=== PATIENT | male | born 1935 | race Caucasian/White ===

== ENCOUNTER 2017-09-03 20:11 | Inpatient (IN) | payer OTHER ==
--- NOTE | 2017-09-03 20:59 | RAD REPORT ---
EXAM DESCRIPTION: CT - Head Brain Wo Cont - 09/03/2017 8:52 pm CLINICAL HISTORY: Syncope, altered consciousness. Head injury. COMPARISON: 05/01/2017 TECHNIQUE: All CT scans are performed using dose optimization technique as appropriate and may inclu de automated exposure control or mA/KV adjustment according to patient size. FINDINGS: No intracranial hemorrhage, hydrocephalus or extra-axial fluid collection.Moderate general ized brain atrophy is present with moderate periventricular and deep white matter chronic microvascul ar ischemic changes.No areas of brain edema or evidence of midline shift. The paranasal sinuses and mastoids are essentially clear. The calvarium is intact. IMPRESSION: No acute intracranial abnormality.
--- NOTE | 2017-09-03 21:00 | RAD REPORT ---
EXAM DESCRIPTION: RAD - Chest Single View - 09/03/2017 8:47 pm CLINICAL HISTORY: Hypotension, chest pain COMPARISON: 05/01/2017 FINDINGS: Portable technique limits examination quality. Elevation of the right hemidiaphragm is noted. No clear etiology for this is seen. The lungs are fan sly clear. The heart is normal in size. No displaced fractures.Tortuous thoracic aorta noted. IMPRESSION: Elevated right hemidiaphragm.
[2017-09-03 21:30] LABS: Absolute Lymphocytes (CBC) 0.8 K/uL (0.7-4.9); Absolute Monocytes 0.9 K/uL (0.1-1.3); Absolute Neutrophil 8.4 K/uL (1.8-8.0); Basophils % 0.3 % (0-1.3); Eosinophils % 0.7 % (0-4.4); Hematocrit 45.3 % (39.6-49.0); Lymphocytes % 7.9 % (15.3-44.8); MCH 30.9 pg (27.0-35.0); MCV 90.1 fL (80-100); MPV 9.5 fL (7.6-11.3); Monocytes % 8.6 % (3.3-12.3); RBC Red Blood Cell Count 5.03 M/uL (4.33-5.43)
[2017-09-03 21:44] LABS: Protime INR 0.96
[2017-09-03 21:47] LABS: Bicarbonate 30 mEq/L (21-31); Glucose Level 98 mg/dL (65-120); Lipase 53 U/L (22-51); Potassium 3.9 mEq/L (3.6-5.0); Sodium Level 135 mEq/L (135-145)
[2017-09-03 21:53] LABS: ALT/SGPT 16 IU/L (10-60); AST/SGOT 22 IU/L (10-42); Albumin 3.7 g/dL (3.2-5.5); Alkaline Phosphatase 90 IU/L (42-121); BUN Blood Urea Nitrogen 20 mg/dL (6-20); Bilirubin Direct 0.1 mg/dL (0-0.2); Bilirubin Total 0.4 mg/dL (0.3-1.2); Creatine Phosphokinase 46 IU/L (22-269)
[2017-09-03 21:55] LABS: CKMB Creatine Kinase MB 3.9 ng/ml (0.3-4.0)
[2017-09-03 21:55] LABS: Urine Blood TRACE (NEG); Urine Glucose NEGATIVE (NEG); Urine Protein 1+ (NEG)
[2017-09-03 22:31] LABS: Arterial Blood Carboxyhemoglob 0.9 % (0-1.5); Blood Gas Oxyhemoglobin 97.1 % (94-97)
--- NOTE | 2017-09-03 23:02 | ER ---
Nurse's Notes [facility] Name: Tanner Burton Age: 82 yrs Sex: Male : 1935 Arrival Date: 09/03/2017 Time: 20:14 Bed 7 Private MD: Diagnosis: Syncope. Acute dyspnea. Transient hypotension Presentation: 09/03 20:15 Presenting complaint: EMS states: THE STAFF AT [facility] FOUND HIM DOWN AND bp UNRESPONSIVE WITH VOMIT ALL DOWN THE FRONT OF HIM. HIS SAT WAS 70 ON SCENE AND HIS BP WAS LOW. Transition of care: patient was received from another setting of care (long-term care facility), [facility]. Onset of symptoms is unknown. Risk Assessment: Do you want to hurt yourself or someone else? Patient reports no desire to harm self or others. Initial Sepsis Screen: Does the patient meet any 2 criteria? No. Patient's initial sepsis screen is negative. Does the patient have a suspected source of infection? No. Patient's initial sepsis screen is negative. Care prior to arrival: IV initiated. 20 GA, in the left antecubital area, Glucose check: 121 Oxygen administered. via a non-rebreather mask. 20:15 Method Of Arrival: EMS: [facility] bp 20:15 Acuity: KATRIN 2 bp Triage Assessment: 20:22 General: Appears in no apparent distress. comfortable, obese, Behavior is quiet, AT bp BASELINE, PER EMS. Pain: Unable to use pain scale. Does not appear to understand pain scale. EENT: No deficits noted. Neuro: Level of Consciousness is lethargic, Oriented to AT BASELINE. Cardiovascular: Capillary refill < 3 seconds Rhythm is atrial fibrillation. Respiratory: Reports PT DISORIENTED AT BASELINE Onset: The symptoms/episode began/occurred at an unknown time. the patient reports symptoms have resolved. GI: Reports vomiting. : No signs and/or symptoms were reported regarding the genitourinary system. Derm: No deficits noted. Musculoskeletal: Circulation, motion, and sensation intact. Historical: - Allergies: 20:22 Amitriptyline; bp - Home Meds: 20:22 Dilantin 100 MG Oral 100 mg three times a day [Active]; Depakote ER 250 mg Oral Tb24 2 bp tabs three times a day [Active]; Neurontin 300 mg Oral cap 2 caps twice a day [Active]; hydrochlorothiazide 12.5 mg Oral cap 1 cap once daily [Active]; levothyroxine 150 mcg tab 1 tab once daily [Active]; losartan 25 mg Oral tab 1 tab once daily [Active]; paroxetine HCl 30 mg oral tab 1 tab once daily [Active]; Flomax 0.4 mg Oral cp24 1 cap once daily [Active]; - PMHx: 20:22 Anxiety; Depression; carpal tunnel; BPH; epilepsy; Hypertension; Hypothyroidism; bp Dementia; Atrial Fib; - Immunization history:: Adult Immunizations up to date. - Social history:: Smoking status: Patient/guardian denies using tobacco. - Ebola Screening: : Patient negative for fever greater than or equal to 101.5 degrees Fahrenheit, and additional compatible Ebola Virus Disease symptoms Patient denies exposure to infectious person Patient denies travel to an Ebola-affected area in the 21 days before illness onset No symptoms or risks identified at this time. Screenin:26 Abuse screen: Denies threats or abuse. Denies injuries from another. Nutritional bp screening: No deficits noted. Tuberculosis screening: No symptoms or risk factors identified. Fall Risk No fall in past 12 months (0 pts). Secondary diagnosis (15 points) dementia, impaired mobility, IV access (20 points). Ambulatory Aid- None/Bed Rest/Nurse Assist (0 pts). Gait- Normal/Bed Rest/Wheelchair (0 pts) Mental Status- Overestimates/Forgets Limitations (15 pts.). Total Anthony Fall Scale indicates High Risk Score (45 or more points). Fall prevention measures have been instituted. Side Rails Up X 2 Placed Close to Nursing Station. Assessment: 20:25 Reassessment: SEE TRIAGE NOTE. bp 20:30 General: Appears in no apparent distress. comfortable, Behavior is calm, cooperative. bp Pain: Denies pain. Neuro: Level of Consciousness is awake, alert, confused, Oriented to person, AT BASELINE. Cardiovascular: Rhythm is atrial fibrillation. Respiratory: Airway is patent Respiratory effort is even, unlabored, Respiratory pattern is regular, symmetrical, Breath sounds are clear bilaterally. GI: No signs and/or symptoms were reported involving the gastrointestinal system. : Parent/caregiver report the patient having incontinence AT BASELINE. EENT: No deficits noted. Derm: Skin is intact, Skin temperature is cool. Musculoskeletal: Circulation, motion, and sensation intact. W/C BOUND AT BASELINE. 21:42 Reassessment: MARLEY BURTON (DAUGHTER IN LAW) [phone]. bp 21:55 Reassessment: LAB CRITICAL DDIMER 1111 RELAYED TO . bp 09/04 00:00 Reassessment: ALL CURRENT ORDERS COMPLETED. ADMIT IN PROCESS. bp 01:29 Reassessment: REPORT TO 407, PT RANJEET. bp Vital Signs: 09/03 20:22 BP 148 / 80; Pulse 73; Resp 14; Temp 97.9; Pulse Ox 100% on Non-rebreather mask; Weight bp 83.91 kg (R); 21:00 BP 122 / 74; Pulse 79; Resp 16; Pulse Ox 100% ; bp 22:00 BP 133 / 75; Pulse 75; Resp 16; Pulse Ox 100% ; bp 23:00 BP 126 / 76; Pulse 89; Resp 14; Pulse Ox 95% ; bp 09/04 00:00 BP 134 / 83; Pulse 90; Resp 18; Pulse Ox 95% ; bp 01:00 BP 128 / 78; Pulse 85; Resp 16; Pulse Ox 98% on R/A; bp ED Course: 09/03 20:14 Patient arrived in ED. bp 20:14 Sherwin Patel MD is Attending Physician. pkl 20:16 Triage completed. bp 20:22 Arm band placed on. bp 20:26 Patient has correct armband on for positive identification. Placed in gown. Bed in low bp position. Call light in reach. Side rails up X2. 20:26 Maintain EMS IV. Dressing intact. Good blood return noted. Site clean \T\ dry. Gauge \T\ bp site: 20 GAUGE LEFT AC. 20:40 Castro Jonas, ABDULLAHI is Primary Nurse. bp 20:[address] via stretcher. eh 20:47 X-ray completed. Portable x-ray completed in exam room. Patient tolerated procedure kc2 well. 20:47 XRAY Chest (1 view) In Process Unspecified. EDMS 20:51 CT completed. Patient tolerated procedure well. Patient moved back from CT. nj 20:52 CT Head Brain wo Cont In Process Unspecified. EDMS 21:41 Pang cath inserted, using sterile technique, 18 Fr., by me, balloon inflated, to bp gravity drainage, urine specimen collected. 23:00 Sarah Kaplan MD is Hospitalizing Provider. pkl 23:41 No provider procedures requiring assistance completed. Patient admitted, IV remains in bp place. Administered Medications: No medications were administered Outcome: 23:01 Decision to Hospitalize by Provider. pkl 09/04 01:34 Admitted to Med/surg accompanied by tech, via stretcher, room 407, with chart, Report bp called to LESLI FERNANDO 01:35 Condition: stable bp 01:35 Instructed on the need for admit. 01:35 Patient left the ED. bp Signatures: Dispatcher [employer] EDMS Sherwin Patel MD MD pkl Kojo Mckeon Kelsie 2 Uriel Keane Brian, RN RN bp
--- NOTE | 2017-09-03 23:02 | EDPHYS ---
Physician Documentation [facility] Name: Tanner Guzman Age: 82 yrs Sex: Male : 1935 Arrival Date: 09/03/2017 Time: 20:14 Bed 7 Private MD: ED Physician Sherwin Patel HPI: 09/03 20:36 This 82 yrs old Male presents to ER via EMS with complaints of Shortness Of pkl Breath. 20:36 The patient has shortness of breath at rest. Onset: The symptoms/episode began/occurred pkl just prior to arrival. Associated signs and symptoms: Pertinent positives: found unresponsive. Historical: - Allergies: 20:22 Amitriptyline; bp - Home Meds: 20:22 Dilantin 100 MG Oral 100 mg three times a day [Active]; Depakote ER 250 mg Oral Tb24 2 bp tabs three times a day [Active]; Neurontin 300 mg Oral cap 2 caps twice a day [Active]; hydrochlorothiazide 12.5 mg Oral cap 1 cap once daily [Active]; levothyroxine 150 mcg tab 1 tab once daily [Active]; losartan 25 mg Oral tab 1 tab once daily [Active]; paroxetine HCl 30 mg oral tab 1 tab once daily [Active]; Flomax 0.4 mg Oral cp24 1 cap once daily [Active]; - PMHx: 20:22 Anxiety; Depression; carpal tunnel; BPH; epilepsy; Hypertension; Hypothyroidism; bp Dementia; Atrial Fib; - Immunization history:: Adult Immunizations up to date. - Social history:: Smoking status: Patient/guardian denies using tobacco. - Ebola Screening: : Patient negative for fever greater than or equal to 101.5 degrees Fahrenheit, and additional compatible Ebola Virus Disease symptoms Patient denies exposure to infectious person Patient denies travel to an Ebola-affected area in the 21 days before illness onset No symptoms or risks identified at this time. ROS: 20:36 Eyes: Negative for injury, pain, redness, and discharge, ENT: Negative for injury, pkl pain, and discharge, Neck: Negative for injury, pain, and swelling, Cardiovascular: Negative for chest pain, palpitations, and edema. 20:36 Respiratory: Positive for shortness of breath. 20:36 Abdomen/GI: Positive for vomiting. 20:36 Back: Negative for acute changes. 20:36 : Negative for urinary symptoms. 20:36 MS/extremity: Positive for swelling, of the both legs. 20:36 Skin: Negative for rash. 20:36 Neuro: Positive for altered mental status, loss of consciousness, syncope. Exam: 20:36 Head/Face: Normocephalic, atraumatic. Eyes: Pupils equal round and reactive to light, pkl extra-ocular motions intact. Lids and lashes normal. Conjunctiva and sclera are non-icteric and not injected. Cornea within normal limits. Periorbital areas with no swelling, redness, or edema. ENT: Nares patent. No nasal discharge, no septal abnormalities noted. Tympanic membranes are normal and external auditory canals are clear. Oropharynx with no redness, swelling, or masses, exudates, or evidence of obstruction, uvula midline. Mucous membranes moist. Neck: Trachea midline, no thyromegaly or masses palpated, and no cervical lymphadenopathy. Supple, full range of motion without nuchal rigidity, or vertebral point tenderness. No Meningismus. Chest/axilla: Normal chest wall appearance and motion. Nontender with no deformity. No lesions are appreciated. Cardiovascular: Regular rate and rhythm with a normal S1 and S2. No gallops, murmurs, or rubs. Normal PMI, no JVD. No pulse deficits. 20:36 Respiratory: the patient does not display signs of respiratory distress, Respirations: labored breathing, Breath sounds: are clear throughout. 20:36 Abdomen/GI: Bowel sounds: normal, Palpation: abdomen is soft and non-tender, in all quadrants. 20:36 Back: Exam negative for acute changes. 20:36 : Exam negative for acute changes. 20:36 Musculoskeletal/extremity: Extremities: grossly normal except: noted in the both legs: swelling. 20:36 Skin: Exam negative for rash. 20:36 Neuro: Orientation: appropriate for stated age, Mentation: appropriate for stated age, Cranial nerves: grossly normal, Motor: moves all fours. Vital Signs: 20:22 BP 148 / 80; Pulse 73; Resp 14; Temp 97.9; Pulse Ox 100% on Non-rebreather mask; Weight bp 83.91 kg (R); 21:00 BP 122 / 74; Pulse 79; Resp 16; Pulse Ox 100% ; bp 22:00 BP 133 / 75; Pulse 75; Resp 16; Pulse Ox 100% ; bp 23:00 BP 126 / 76; Pulse 89; Resp 14; Pulse Ox 95% ; bp 06 00:00 BP 134 / 83; Pulse 90; Resp 18; Pulse Ox 95% ; bp 01:00 BP 128 / 78; Pulse 85; Resp 16; Pulse Ox 98% on R/A; bp MDM: 09/03 20:14 Patient medically screened. pkl 22:59 Data reviewed: vital signs, nurses notes, lab test result(s), EKG, radiologic studies, pkl CT scan, plain films. 09/03 20:33 Order name: Basic Metabolic Panel; Complete Time: 22:52 pkl 09/03 20:33 Order name: BNP; Complete Time: 22:52 pkl 09/03 20:33 Order name: CBC with Diff; Complete Time: 22:52 pkl 09/03 20:33 Order name: Ckmb; Complete Time: 22:52 pkl 09/03 20:33 Order name: CPK; Complete Time: 22:52 pkl 09/03 20:33 Order name: LFT's; Complete Time: 22:52 pkl 09/03 20:33 Order name: Magnesium; Complete Time: 22:52 pkl 09/03 20:33 Order name: PT-INR; Complete Time: 22:52 pkl 09/03 20:33 Order name: Ptt, Activated; Complete Time: 22:52 pkl 09/03 20:33 Order name: Troponin (emerg Dept Use Only); Complete Time: 22:52 pkl 09/03 20:35 Order name: ABG; Complete Time: 22:58 pkl 09/03 20:35 Order name: D-Dimer; Complete Time: 22:52 pkl 09/03 20:35 Order name: Blood Culture Adult (2) pkl 09/03 20:33 Order name: XRAY Chest (1 view); Complete Time: 21:26 pkl 09/03 20:33 Order name: EKG; Complete Time: 20:34 pkl 09/03 20:33 Order name: Cardiac monitoring; Complete Time: 21:40 pkl 09/03 20:33 Order name: EKG - Nurse/Tech; Complete Time: 21:40 pkl 09/03 20:33 Order name: IV Saline Lock; Complete Time: 21:41 pkl 09/03 20:33 Order name: Labs collected and sent; Complete Time: 21:41 pkl 12 20:33 Order name: O2 Per Protocol; Complete Time: 21:41 pkl 09/03 20:33 Order name: O2 Sat Monitoring; Complete Time: 21:41 pkl 09/03 20:33 Order name: Urine Dipstick-Ancillary (obtain specimen); Complete Time: 21:41 pkl 09/03 20:35 Order name: Lactate; Complete Time: 22:52 pkl 09/03 20:35 Order name: Pang; Complete Time: 21:40 pkl 09/03 20:41 Order name: CT Head Brain wo Cont; Complete Time: 21:26 pkl 09/03 20:46 Order name: Lipase; Complete Time: 22:52 EDME 09/03 21:53 Order name: Urine Dipstick--Ancillary (enter results); Complete Time: 22:52 eb 09/03 22:59 Order name: CT Chest For PE Angio pkl Administered Medications: No medications were administered Disposition: 09/03/17 23:01 Hospitalization ordered by Sarah Kaplan for Observation. Preliminary diagnosis is Syncope. Acute dyspnea. Transient hypotension. - Bed requested for Telemetry/MedSurg (observation). - Status is Observation. bp - Condition is Stable. - Problem is new. - Symptoms have improved. UTI on Admission? No Signatures: Dispatcher [facility] Chayito Sotomayor RN RN mw Lam, Pin, MD MD pkl Peltier, Brian, RN RN bp Corrections: (The following items were deleted from the chart) 20:45 20:35 LIPASE+C.LAB.BRZ ordered. [facility] EDME 23:05 23:01 Hospitalization Ordered by Sarah Kaplan MD for Observation. Preliminary cathleen diagnosis is Syncope. Acute dyspnea. Transient hypotension. Bed requested for Telemetry/MedSurg (observation). Status is Observation. Condition is Stable. Problem is new. Symptoms have improved. UTI on Admission? No. pkl 09/04 01:35 09/03 23:05 09/03/2017 23:01 Hospitalization Ordered by Sarah Kaplan MD for bp Observation. Preliminary diagnosis is Syncope. Acute dyspnea. Transient hypotension. Bed requested for Telemetry/MedSurg (observation). Status is Observation. Condition is Stable. Problem is new. Symptoms have improved. UTI on Admission? No. mw
[2017-09-04] MEDS ORDERED: ONDANSETRON 4 MG/2 ML VIAL IV PRN (02:26)
[2017-09-04] MEDS ORDERED: ALBUTEROL 2.5 MG/3 ML NEB SOL NEB PRN (02:26)
[2017-09-04] MEDS ORDERED: ACETAMINOPHEN 500 MG TAB PO PRN (02:26)
[2017-09-04] MEDS ORDERED: IPRATROPIUM BROM 0.5MG/2.5ML NEB PRN (02:26)
[2017-09-04] MEDS: NA CHLORIDE 0.9% 1,000 ML IV SCH ×3 (02:46→23:03)
[2017-09-04 04:49] LABS: Absolute Lymphocytes (CBC) 0.7 K/uL (0.7-4.9); Absolute Monocytes 0.6 K/uL (0.1-1.3); Absolute Neutrophil 6.5 K/uL (1.8-8.0); Basophils % 0.3 % (0-1.3); Eosinophils % 0.4 % (0-4.4); Hematocrit 42.3 % (39.6-49.0); MCH 31.2 pg (27.0-35.0); MCV 90.2 fL (80-100); MPV 9.6 fL (7.6-11.3); Monocytes % 7.1 % (3.3-12.3); RBC Red Blood Cell Count 4.69 M/uL (4.33-5.43)
[2017-09-04 05:16] LABS: ALT/SGPT 14 IU/L (10-60); AST/SGOT 18 IU/L (10-42); Albumin 3.2 g/dL (3.2-5.5); Alkaline Phosphatase 83 IU/L (42-121); BUN Blood Urea Nitrogen 21 mg/dL (6-20); Bicarbonate 28 mEq/L (21-31); Bilirubin Total 0.5 mg/dL (0.3-1.2); Glucose Level 101 mg/dL (65-120); Potassium 3.7 mEq/L (3.6-5.0); Protein, Total 6.4 g/dL (6.0-8.3); Sodium Level 136 mEq/L (135-145)
--- NOTE | 2017-09-04 05:46 | P.HP ---
Certification for Inpatient Patient admitted to: Inpatient With expected LOS: >2 Midnights Practitioner: I am a practitioner with admitting privileges, knowledge of patient current condition, hospital course, and medical plan of care. Services: Services provided to patient in accordance with Admission requirements found in Title 42 Section 412.3 of the Code of Federal Regulations Patient History Date of Service: 09/03/17 Reason for admission: syncope History of Present Illness: Mr Guzman is an 82 years old male with history of Dementia, A.Fib, HTN, Epilepsy, resident of a halfway, was found unresponsive with emesis on the floor. The SNF staff called 911. When EMS arrived found the patient hypotensive , with SBP about 70's, and hypoxemic, O2 Sat 70%. Upon arrival to ED, his BP was 148/80 after receive IV fluids, and his O2 100% on non-rebreathing mask. No history of fever or chills. The patient in not able to provide any history due to confusion, possible similar to his baseline. ER work up was remarkable for elevated D-Dimer, 1111, subsequent CTA chest was negative for PE. CT head shows no acute abnormalities. Allergies Amitriptyline Allergy (Uncoded 05/02/17 02:26) Unknown Home Medications: Divalproex [Depakote Sprinkle] 500 mg PO TID 09/04/17 Gabapentin [Gralise] 600 mg PO BID 09/04/17 Levothyroxine Sodium [Synthroid] 150 mcg PO DAILY 09/04/17 Losartan Potassium 25 mg PO DAILY 09/04/17 Mag Hydroxide 8% [Milk Of Magnesia*] 30 ml PO DAILY PRN 09/04/17 PARoxetine HCl [Paxil] 30 mg PO BEDTIME 09/04/17 PHENYTOIN ER Cap [Dilantin ER Cap] 100 mg PO TID 09/04/17 Tamsulosin HCl [Flomax] 0.4 mg PO DAILY 09/04/17 hydroCHLOROthiazide [Hydrochlorothiazide*] 12.5 mg PO DAILY 09/04/17 - Past Medical/Surgical History Has patient received pneumonia vaccine in the past: Yes Diabetic: No -: anxiety disorder -: dementia -: depression -: Atrial Fib -: epilepsy -: carpal tunnel -: BPH -: HTN -: Hypothyrodism Past Surgical History: Reviewed- Non-Contributory - Family History Family History: Reviewed- Non-Contributory - Social History Smoking Status: Former smoker Alcohol use: No CD- Drugs: No Caffeine use: Yes Place of Residence: [facility] Review of Systems 10-point ROS is otherwise unremarkable Physical Examination - Vital Signs Temperature: 97 F Blood Pressure: 140/82 Pulse: 80 Respirations: 18 Pulse Ox (%): 92 - Physical Exam General: Alert, In no apparent distress, Confused HEENT: Atraumatic, PERRLA, Mucous membr. moist/pink, Sclerae nonicteric Neck: Supple, 2+ carotid pulse no bruit, No LAD, Without JVD or thyroid abnormality Respiratory: Normal air movement, Other (coarse bilateral) Cardiovascular: Normal S1 S2, Irregular heart rate/rhythm Gastrointestinal: Normal bowel sounds, No tenderness Musculoskeletal: No tenderness Integumentary: No rashes Neurological: Normal strength at 5/5 x4 extr, Normal tone, Normal affect Lymphatics: No axilla or inguinal lymphadenopathy - Studies Laboratory Data (last 24 hrs) 09/03/17 21:00: PT 11.3, INR 0.96, APTT 23.0 L 09/03/17 21:00: WBC 10.2, Hgb 15.5, Hct 45.3, Plt Count 142 L 09/03/17 21:00: B-Natriuretic Peptide 43 09/03/17 21:00: Sodium 135, Potassium 3.9, BUN 20, Creatinine 0.81, Glucose 98, Magnesium 2.0, Total Bilirubin 0.4, AST 22, ALT 16, Alkaline Phosphatase 90, Lipase 53 H 09/03/17 20:35: Lipase Cancelled Assessment and Plan - Problems (Diagnosis) (1) Epilepsy Current Visit: Yes Status: Acute Qualifiers: Epilepsy type: unspecified Intractability: not intractable Status epilepticus: without status epilepticus Qualified Code(s): G40.909 - Epilepsy , unspecified, not intractable, without status epilepticus (2) HTN (hypertension) Current Visit: Yes Status: Acute Qualifiers: Hypertension type: essential hypertension Qualified Code(s): I10 - Essential (primary) hypertension (3) Dementia Current Visit: Yes Status: Acute Qualifiers: Dementia type: unspecified type (4) A-fib Current Visit: Yes Status: Acute Qualifiers: Atrial fibrillation type: paroxysmal Qualified Code(s): I48.0 - Paroxysmal atrial fibrillation - Plan Mr Chamber will be admitted to the hospital due to syncopal episode. Since he had elevated D.Dimer associated with hypotension and hypoxia, PE was suspected, however, it was ruled out with a CTA chest. Consider seizure episode. Will consult Dr Regalado for evaluation and recommendations. Check phenytoin level. Resume home medication once verified. - Advance Directives Does patient have a Living Will: No Does patient have a Durable POA for Healthcare: No
[2017-09-04] MEDS ORDERED: POTASSIUM CL SA 10 MEQ TAB PO ONE (06:00)
--- NOTE | 2017-09-04 06:20 | EKG ---
Test Date: 2017-09-03 Test Time: 21:00:33 Oyster Harvester: BP MEASUREMENT RESULTS: Intervals: Rate: 79 [place]: 138 QRSD: 88 QT: 390 QTc: 447 [place]: P: 42 [place]: 138 QRS: -22 T: -11 INTERPRETIVE STATEMENTS: Sinus rhythm with occasional premature ventricular complexes Otherwise normal ECG Compared to ECG 05/01/2017 20:45:51 Ventricular premature complex(es) now present Electronically Signed On 09-04-17 06:19:32 CDT by Luis Alfredo Palacios
[2017-09-04] MEDS: LEVOTHYROXINE SOD 0.075 MG TAB PO SCH (06:21)
[2017-09-04] MEDS: PHENYTOIN ER 100 MG CAP PO SCH (09:00)
--- NOTE | 2017-09-04 09:14 | RAD REPORT ---
EXAM DESCRIPTION: CT - Chest For Pe Angio - 09/04/2017 2:04 am CLINICAL HISTORY: Chest pain. COMPARISON: None. TECHNIQUE: CT angiogram of the pulmonary arteries was performed with MIP. All CT scans are performed using dose optimization technique as appropriate and may include automated exposure control or mA/KV adjustment according to patient size. FINDINGS: No evidence of pulmonary thromboembolism. No acute aortic finding demonstrated. Thoracic aorta is mildly prominent measuring up to 4.4 cm. Linear atelectasis is present in both lung bases. No focal infiltrate is seen. No significant pericardial or pleural fluid. Esophageal thickening is present diffusely. No concerning bony finding. IMPRESSION: No evidence of pulmonary thromboembolism. 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 Thickening of the esophagus noted suggesting underlying esophagitis.
[2017-09-04] MEDS ORDERED: PHENYTOIN Inj 1,000 MG in NA CHLORIDE 0.9% 100 ML IV STA (10:30)
[2017-09-04] MEDS: DIVALPROEX NA 125 MG CAP PO SCH ×3 (10:35→22:29)
[2017-09-04] MEDS: ENOXAPARIN 40 MG/0.4 ML SQ SCH (10:35)
[2017-09-04] MEDS: TAMSULOSIN 0.4 MG SR CAP PO SCH (10:36)
[2017-09-04] MEDS: GABAPENTIN 300 MG CAP PO SCH ×2 (10:36→22:30)
--- NOTE | 2017-09-04 10:37 | P.PN ---
Subjective Date of Service: 09/04/17 Primary Care Provider: Trini Chief Complaint: syncope Subjective: No new changes, No C/O voiced, Demented Pt oriented to person. Believes he is in [place]. No c/o pain. Will US bilateral lower extremities secondary to swelling. Awaiting Dilantin level and Neurology evaluation. Review of Systems is unable to be obtained Physical Examination - Vital Signs Temperature: 97.4 F Blood Pressure: 125/63 Pulse: 84 Respirations: 18 Pulse Ox (%): 93 - Physical Exam General: Alert HEENT: Atraumatic, Normocephalic Neck: Supple Respiratory: Clear to auscultation bilaterally, Normal air movement Cardiovascular: Normal pulses, Edema Capillary refill: <2 Seconds Gastrointestinal: Normal bowel sounds Neurological: Dementia Lymphatics: No axilla or inguinal lymphadenopathy External genitalia: Deferred Rectal: Deferred - Studies Laboratory Data (last 24 hrs) 09/03/17 21:00: PT 11.3, INR 0.96, APTT 23.0 L 09/03/17 21:00: WBC 10.2, Hgb 15.5, Hct 45.3, Plt Count 142 L 09/03/17 21:00: B-Natriuretic Peptide 43 09/03/17 21:00: Sodium 135, Potassium 3.9, BUN 20, Creatinine 0.81, Glucose 98, Magnesium 2.0, Total Bilirubin 0.4, AST 22, ALT 16, Alkaline Phosphatase 90, Lipase 53 H 09/03/17 20:35: Lipase Cancelled Assessment & Plan - Problems (Diagnosis) (1) Epilepsy Onset Date: 09/04/17 Current Visit: Yes Status: Acute Qualifiers: Epilepsy type: unspecified Intractability: not intractable Status epilepticus: without status epilepticus Qualified Code(s): G40.909 - Epilepsy , unspecified, not intractable, without status epilepticus Plan to discharge in: 48 Hours
--- NOTE | 2017-09-04 11:31 | RAD REPORT ---
EXAM DESCRIPTION: VAS - Extrem Venous W Compress Keanu - 09/04/2017 11:05 am CLINICAL HISTORY: Bilateral leg edema and swelling. COMPARISON: None. TECHNIQUE: Real-time sonographic interrogation of the left and right lower extremity deep venous sys tems was performed. FINDINGS: Normal compressibility, flow augmentation, phasic flow and spontaneous flow is identified in both the left and right lower extremity deep venous systems. IMPRESSION: No sonographic evidence of left or right lower extremity deep venous thrombosis.
--- NOTE | 2017-09-04 21:01 | CON ---
Reason For Consultation: Consultation was called because patient was found unresponsive in vomit. History Of Present Illness: Mr. 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 In [facility], he does have hypertension and hypothyroidism. Reportedly, he was sitting in a chair when he fe ll out of the chair and was found on the floor unresponsive in vomitus. Emergency medical services w ere contacted and his evaluation included blood pressure, which systolic was found to be around 70. He was started on IV fluids, brought into [facility] for workup, which did include sepsis ev aluation in addition to head CT scan to rule out bleed. His head CT scan was unremarkable for any ac chester ischemic or hemorrhagic change, and blood work showed no evidence of sepsis with a normal white b lood cell count. His blood chemistries essentially were unremarkable with a normal pH and he did hav e slightly elevated CO2 of 28.8. The patient does have as indicated a history of seizures for which he should have been on Dilantin 300 mg at night. However, his blood level of Dilantin was less than 2.5, which is below the 60 level of the test in the lab and there is a phenobarbital level check also less than the detection with the lab less than 5 and for phenytoin is less than 2.5 that is consiste nt. The patient is not taking either phenytoin or phenobarbital in terms of seizure medications. It should be noted that at baseline he has little verbal interaction and requires assistance for activi ties including his transfers and performing activities of daily living. Past Medical History: As indicated, including anxiety, depression, localization-related seizures, hy pertension, hypothyroidism, dementia, atrial fibrillation. He also has by benign prostatic hypertrop hy. Allergies: AMITRIPTYLINE. Home Medications: Dilantin 300 mg at night, Depakote extended release 250 mg 3 times daily, gabapent in 300 mg tablets 2 twice daily, hydrochlorothiazide 12.5 mg daily, levothyroxine 150 mcg daily, losa rtan 25 mg daily, paroxetine 30 mg daily, Flomax 0.4 mg daily. Social History: No alcohol, tobacco, or IV drug use. Family History: Noncontributory. Physical Examination: General: Mr. Guzman is resting in bed. He does have some tremors noted in the arms suggestive of him being cold. He did not have a shirt or gown and the sheets were pulled up, but his arms and shou lders were exposed. HEENT: He did appear normocephalic and atraumatic and sclerae anicteric. Oropharynx appear moist an d pink. Neck: Seems subtle and is clear. Heart: Regular. Neurological: He is has very poor verbal output and poor responsiveness to commands. He did not vol untarily move the left arm and when moved passively, he tended to resist more consistent with paraton ia. The right arm similar to the left, did not extend or move more freely, but he had more control o f the right arm, but there was paratonia movement and flexion-extension tremor noted in both upper ex tremities. In terms of his lower extremity motor examination, there was stiffness noted in both legs and little voluntary lifting or movement of the legs. Cranial nerves did not appear to show focal d eficits left or right, and tone has increased and reflexes are 1 to 2+ in the upper and lower extremi ties. Unable to fully assess coordination, gait, and actually full strength. Laboratory Studies: His white blood cell count, hemoglobin and hematocrit all normal liver function studies were normal. Basic metabolic panel essentially unremarkable and lipase was elevated to 53. Urinalysis shows trace blood, 1+ O protein, and again, Dilantin level is less than 2.5. Phenobarbita l level less than 5. Assessment: Mr. Guzman is an 82-year-old patient with localization-related complex partial seizure s and who has had a very subtherapeutic Dilantin level and possibly had a seizure resulting in his fa lling out of his chair. He has had a chronic stroke with significant left-sided weakness, and has ve ry poor expression consistent with significant aphasia. H he does not have evidence of an ongoing in fection at this time. Plan: 1.The patient should be back on his Depakote along with Dilantin. 2.Continue with all other medications including gabapentin, Synthroid and Zofran. 3.Once discharge, he may follow up with Dr. Regalado's clinic in 1 month and it is important that th e patient be continued on his antiepileptic medications as prescribed and blood level should be check ed about 10 days once he is on a steady dosage of medications and that will be for Dilantin and Depak ote levels. AMY/SHARONDA Voice ID: [id number] Report ID: [id number]
[2017-09-05 05:25] LABS: Absolute Lymphocytes (CBC) 1.4 K/uL (0.7-4.9); Absolute Monocytes 0.7 K/uL (0.1-1.3); Absolute Neutrophil 2.6 K/uL (1.8-8.0); Basophils % 0.3 % (0-1.3); Eosinophils % 1.3 % (0-4.4); Hematocrit 35.4 % (39.6-49.0); Lymphocytes % 29.6 % (15.3-44.8); MCH 31.8 pg (27.0-35.0); MCV 90.4 fL (80-100); MPV 9.5 fL (7.6-11.3); RBC Red Blood Cell Count 3.91 M/uL (4.33-5.43)
[2017-09-05 05:42] LABS: ALT/SGPT 11 IU/L (10-60); AST/SGOT 16 IU/L (10-42); Albumin 2.6 g/dL (3.2-5.5); Alkaline Phosphatase 73 IU/L (42-121); BUN Blood Urea Nitrogen 17 mg/dL (6-20); Bicarbonate 26 mEq/L (21-31); Bilirubin Total 0.6 mg/dL (0.3-1.2); Glucose Level 76 mg/dL (65-120); Potassium 3.5 mEq/L (3.6-5.0); Protein, Total 5.3 g/dL (6.0-8.3); Sodium Level 136 mEq/L (135-145)
[2017-09-05] MEDS: LEVOTHYROXINE SOD 0.075 MG TAB PO SCH (06:57)
[2017-09-05] MEDS: DIVALPROEX NA 125 MG CAP PO SCH ×3 (08:58→21:55)
[2017-09-05] MEDS: ENOXAPARIN 40 MG/0.4 ML SQ SCH (08:59)
[2017-09-05] MEDS: GABAPENTIN 300 MG CAP PO SCH ×2 (08:59→21:56)
[2017-09-05] MEDS: TAMSULOSIN 0.4 MG SR CAP PO SCH (08:59)
[2017-09-05] MEDS ORDERED: POTASSIUM CL SA 10 MEQ TAB PO ONE (09:00)
[2017-09-05] MEDS: NA CHLORIDE 0.9% 1,000 ML IV SCH ×3 (09:15→18:29)
--- NOTE | 2017-09-05 12:50 | P.PN ---
Subjective Date of Service: 09/05/17 Primary Care Provider: Trini Chief Complaint: syncope Pt seen and examined at bedside with RN. Chart reviewed. Case DW with neurology. Currently Pt is sleeping. Arousal to painful stimuli. Doing well overall. Review of Systems General: As per HPI Physical Examination - Vital Signs Temperature: 98.3 F Blood Pressure: 107/65 Pulse: 61 Respirations: 16 Pulse Ox (%): 93 - Physical Exam General: In no apparent distress, Oriented x1 HEENT: Atraumatic, PERRLA, EOMI Neck: Supple, JVD not distended Respiratory: Clear to auscultation bilaterally, Normal air movement Cardiovascular: Regular rate/rhythm, Normal S1 S2 Gastrointestinal: Normal bowel sounds, No tenderness Musculoskeletal: No tenderness Integumentary: No rashes Neurological: Normal speech, Normal tone, Normal affect Lymphatics: No axilla or inguinal lymphadenopathy - Studies Medications List Reviewed: Yes Assessment & Plan - Problems (Diagnosis) (1) Epilepsy Onset Date: 09/04/17 Current Visit: Yes Status: Acute Plan: complex partial seizures -Subtherapeutic Dilantin level -Neruology consulted. Reccs Appreciated -Restart back on the Dilatin and depakote. -He has had a chronic stroke with significant left-sided weakness, and has very poor expression consistent with significant aphasia -On DC pt will need Dilantin level checked in 10 days Qualifiers: Epilepsy type: unspecified Intractability: not intractable Status epilepticus: without status epilepticus Qualified Code(s): G40.909 - Epilepsy , unspecified, not intractable, without status epilepticus (2) A-fib Onset Date: 09/04/17 Current Visit: Yes Status: Chronic Qualifiers: Atrial fibrillation type: paroxysmal Qualified Code(s): I48.0 - Paroxysmal atrial fibrillation (3) Dementia Onset Date: 09/04/17 Current Visit: Yes Status: Chronic Qualifiers: Dementia type: unspecified type (4) HTN (hypertension) Onset Date: 09/04/17 Current Visit: Yes Status: Chronic Qualifiers: Hypertension type: essential hypertension Qualified Code(s): I10 - Essential (primary) hypertension Discharge Plan: [facility] Plan to discharge in: 24 Hours - Code Status/Comfort Care Code Status Assessed: Yes Critical Care: No
[2017-09-05] MEDS: PHENYTOIN ER 100 MG CAP PO SCH ×2 (14:13→21:56)
[2017-09-06 05:13] LABS: BUN Blood Urea Nitrogen 16 mg/dL (6-20); Bicarbonate 24 mEq/L (21-31); Glucose Level 75 mg/dL (65-120); Potassium 3.8 mEq/L (3.6-5.0); Sodium Level 137 mEq/L (135-145)
[2017-09-06] MEDS: NA CHLORIDE 0.9% 1,000 ML IV SCH (05:55)
[2017-09-06] MEDS: LEVOTHYROXINE SOD 0.075 MG TAB PO SCH (05:55)
[2017-09-06] MEDS ORDERED: KCL 20 MEQ/100 mL IVPB 20 MEQ/100 ML BAG IV SCH (07:00)
[2017-09-06] MEDS: GABAPENTIN 300 MG CAP PO SCH (09:34)
[2017-09-06] MEDS: ENOXAPARIN 40 MG/0.4 ML SQ SCH (09:34)
[2017-09-06] MEDS: TAMSULOSIN 0.4 MG SR CAP PO SCH (09:34)
[2017-09-06] MEDS: DIVALPROEX NA 125 MG CAP PO SCH (09:35)
[2017-09-06] MEDS: PHENYTOIN ER 100 MG CAP PO SCH (09:35)
--- NOTE | 2017-09-06 17:59 | P.DS ---
Admission Date: 09/05/17 Discharge Date: 09/06/17 Primary Care Provider: Trini Disposition: TRANSFER TO RETIREMENT Discharge Condition: GOOD Reason for Admission: syncope Consultations: Neurology - Problems (1) Epilepsy Onset Date: 09/04/17 Status: Acute Qualifiers: Epilepsy type: unspecified Intractability: not intractable Status epilepticus: without status epilepticus Qualified Code(s): G40.909 - Epilepsy , unspecified, not intractable, without status epilepticus (2) A-fib Onset Date: 09/04/17 Status: Chronic Qualifiers: Atrial fibrillation type: paroxysmal Qualified Code(s): I48.0 - Paroxysmal atrial fibrillation (3) Dementia Onset Date: 09/04/17 Status: Chronic Qualifiers: Dementia type: unspecified type (4) HTN (hypertension) Onset Date: 09/04/17 Status: Chronic Qualifiers: Hypertension type: essential hypertension Qualified Code(s): I10 - Essential (primary) hypertension Brief History of Present Illness: Mr. 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 In addition, he does have hypertension and hypothyroidism. Reportedly, he was sitting in a chair when he fell out of the chair and was found on the floor unresponsive in vomitus. Emergency medical services were contacted and his evaluation included blood pressure, which systolic was found to be around 70. He was started on IV fluids, brought into [facility] for workup, which did include sepsis evaluation in addition to head CT scan to rule out bleed. His head CT scan was unremarkable for any acute ischemic or hemorrhagic change, and blood work showed no evidence of sepsis with a normal white blood cell count. His blood chemistries essentially were unremarkable with a normal pH and he did have slightly elevated CO2 of 28.8. The patient does have as indicated a history of seizures for which he should have been on Dilantin 300 mg at night. However, his blood level of Dilantin was less than 2.5, which is below the 60 level of the test in the lab and there is a phenobarbital level check also less than the detection with the lab less than 5 and for phenytoin is less than 2.5 that is consistent. The patient is not taking either phenytoin or phenobarbital in terms of seizure medications. It should be noted that at baseline he has little verbal interaction and requires assistance for activities including his transfers and performing activities of daily living. Hospital Course: Overall during the hospital stay patient remained stable The patient was initially admitted to the hospital for recurrent seizures. Patient was not taking his his seizures medication [facility] the [facility]. Neurology was consulted who recommended the patient is medications be restarted back here in the hospital. Patient remained seizure free while here in the hospital medications were restarted and patient had no complications noted while here in the hospital. Patient was then [facility]. The patient was asked to follow up with Neurology in about 1-2 weeks post discharge and was asked to repeat his Dilantin level along with a BMP in about 1 week as well. Vital Signs/Physical Exam: Temp Pulse Resp BP Pulse Ox 98.8 F 68 18 126/69 93 09/06/17 11:59 09/06/17 11:59 09/06/17 11:59 09/06/17 11:59 09/06/17 11:59 General: In no apparent distress, Oriented x1, Demented HEENT: Atraumatic, PERRLA, EOMI Neck: Supple, JVD not distended Respiratory: Clear to auscultation bilaterally, Normal air movement Cardiovascular: Regular rate/rhythm, Normal S1 S2 Gastrointestinal: Normal bowel sounds, No tenderness Musculoskeletal: No tenderness Integumentary: No rashes Neurological: Normal tone, Normal affect, Abnormal speech Lymphatics: No axilla or inguinal lymphadenopathy Laboratory Data at Discharge: WBC 4.8 K/uL (4.3-10.9) D 09/05/17 04:26 Hgb 12.4 g/dL (13.6-17.9) L 09/05/17 04:26 Hct 35.4 % (39.6-49.0) L D 09/05/17 04:26 Plt Count 120 K/uL (152-406) L 09/05/17 04:26 PT 11.3 SECONDS (9.5-12.5) 09/03/17 21:00 INR 0.96 09/03/17 21:00 APTT 23.0 SECONDS (24.3-36.9) L 09/03/17 21:00 Sodium 137 mEq/L (135-145) 09/06/17 04:13 Potassium 3.8 mEq/L (3.6-5.0) 09/06/17 04:13 BUN 16 mg/dL (6-20) 09/06/17 04:13 Creatinine 0.71 mg/dL (0.61-1.24) 09/06/17 04:13 Glucose 75 mg/dL (65-120) 09/06/17 04:13 Magnesium 2.0 mg/dL (1.8-2.5) 09/03/17 21:00 Total Bilirubin 0.6 mg/dL (0.3-1.2) 09/05/17 04:26 AST 16 IU/L (10-42) 09/05/17 04:26 ALT 11 IU/L (10-60) 09/05/17 04:26 Alkaline Phosphatase 73 IU/L (42-121) 09/05/17 04:26 B-Natriuretic Peptide 43 pg/ml (<=100) 09/03/17 21:00 Lipase 53 U/L (22-51) H 09/03/17 21:00 Home Medications: Divalproex [Depakote Sprinkle*] 500 mg PO TID 09/04/17 Gabapentin [Gralise] 600 mg PO BID 09/04/17 Levothyroxine Sodium [Synthroid] 150 mcg PO DAILY 09/04/17 Losartan Potassium 25 mg PO DAILY 09/04/17 Mag Hydroxide 8% [Milk Of Magnesia*] 30 ml PO DAILY PRN 09/04/17 PARoxetine HCl [Paxil*] 30 mg PO BEDTIME 09/04/17 PHENYTOIN ER Cap [Dilantin ER Cap*] 100 mg PO TID 09/04/17 Tamsulosin HCl [Flomax] 0.4 mg PO DAILY 09/04/17 hydroCHLOROthiazide [Hydrochlorothiazide*] 12.5 mg PO DAILY 09/04/17 Patient Discharge Instructions: Please f.u with PCP in 1 to 2 week post discharge. Please f.u with Dr Regalado in 1 to 2 week post discharge. No new medication. Continue taking. Depakote and dilatin as prescribed and mention on med Reconcillation list. Do not take all your BP medication togather as they may be causing your syncopal episode. Please space them out to AM and PM Diet: Regular Activity: Ad eloina Followup: Seth Regalado MD [ASSOCIATE-ACTIVE - CAN ADMIT] - (call to schedule appointment)
== END 2017-09-06 13:14 | DRG 101 ==
LOC: ER 20:11 → ERHOLD 23:02 → 4TH 09-04 01:24 → OBSVTOIN 09-05 14:39
PROVIDERS: ADMIT Internal Medicine; ATTEND Family Medicine
DX: G40.209 Localization-related (focal) (partial) symptomatic epilepsy and epileptic syndromes with complex partial seizures, not intractable, without status epilepticus (principal); I69.354 Hemiplegia and hemiparesis following cerebral infarction affecting left non-dominant side; I48.0 Paroxysmal atrial fibrillation; F01.50 Vascular dementia, unspecified severity, without behavioral disturbance, psychotic disturbance, mood disturbance, and anxiety; I10 Essential (primary) hypertension; E03.9 Hypothyroidism, unspecified; I69.320 Aphasia following cerebral infarction; F41.8 Other specified anxiety disorders; N40.0 Benign prostatic hyperplasia without lower urinary tract symptoms; Z87.891 Personal history of nicotine dependence
CPT/HCPCS: 36415; 51702; 70450; 71045; 71275; 80048; 80053; 80076; 80184; 80185; 81003; 82550; 82553; 82805; 83605; 83690; 83735; 83880; 84484; 85025; 85379; 85610; 85730; 87040; 87205; 93005; 93970; 94760; 97163; 99285; G0378; J1165; J1650; J7030; Q9967